=== PATIENT | female | born 1955 | race Caucasian/White ===

== ENCOUNTER 2024-11-26 06:23 | Day surgery (SDC) | payer OTHER ==
[2024-11-23 14:34] LABS: Absolute Eosinophils 0.1 K/uL (0-0.5); Absolute Lymphocytes (CBC) 1.9 K/uL (0.7-4.9); Absolute Monocytes 0.4 K/uL (0.1-1.3); Absolute Neutrophil 3.8 K/uL (1.8-8.0); Basophils % 0.4 % (0-1.3); Eosinophils % 1.4 % (0-4.4); Hematocrit 37.6 % (36.0-45.0); Hemoglobin 12.8 g/dL (12.0-15.0); Lymphocytes % 30.5 % (15.3-44.8); MCH 28.1 pg (27.0-35.0); MCHC 33.9 g/dL (32.0-36.0); MCV 82.8 fL (80-100); MPV 7.5 fL (7.6-11.3); Monocytes % 7.1 % (3.3-12.3); Neutrophils % 60.6 % (41.7-73.7); Platelets 308 thou/uL (152-406); RBC Red Blood Cell Count 4.55 M/uL (3.86-4.86); Red Cell Distribution Width 13.5 % (12.1-15.2)
[2024-11-23 14:52] LABS: Anion Gap 8.1 mEq/L (5.0-15.0); Potassium 4.1 mEq/L (3.5-5.1)
--- NOTE | 2024-11-25 12:36 | EKG ---
Test Date: 2024-11-23 Test Time: 14:08:33 [employer]r: BENNETT MEASUREMENT RESULTS: Intervals: Rate: 63 OR: 166 QRSD: 84 QT: 408 QTc: 417 [place]: P: 74 OR: 166 QRS: 69 T: 73 INTERPRETIVE STATEMENTS: Normal sinus rhythm Normal ECG Compared to ECG 03/23/2024 11:57:28 Sinus bradycardia no longer present Electronically Signed On 11-25-24 12:27:13 CDT by Jose Nielson
[2024-11-26] MEDS: Ringers Lactate 1,000 ML IV ONE ×2 (07:37→09:29)
[2024-11-26] MEDS ORDERED: ROCURONIUM 50 MG/5 ML VIAL IV ONE (08:07)
[2024-11-26] MEDS ORDERED: propofoL 200 MG/20 ML VIAL IV ONE (08:07)
[2024-11-26] MEDS ORDERED: FENTANYL CITR 100 MCG/2 ML ONE ×2 (08:07→10:02)
[2024-11-26] MEDS ORDERED: KETOROLAC 30 MG/ML INJ ONE (08:07)
[2024-11-26] MEDS ORDERED: ONDANSETRON 4 MG/2 ML VIAL ONE (08:07)
[2024-11-26] MEDS ORDERED: LIDOCAINE 2% MPF 5 ML VIAL ONE (08:07)
[2024-11-26] MEDS ORDERED: MIDAZOLAM HCL 2 MG/2 ML INJ ONE (08:07)
[2024-11-26] MEDS ORDERED: dexAMETHasone 10 MG/ML VIAL ONE (08:07)
[2024-11-26] MEDS ORDERED: NS 0.9% VIAL 20 ML ONE (08:28)
[2024-11-26] MEDS: CEFAZOLIN SODIUM 1 GM/VIAL ONE (08:30)
[2024-11-26] MEDS: LIDOCAINE HCL/EPINEPHRINE 20 ML MDV ONE (08:50)
[2024-11-26] MEDS: OXYMETAZOLINE HCL 0.05% 30ML NAS ONE ×2 (08:50→09:15)
[2024-11-26] MEDS: NA CHLORIDE 0.9% 1,000 ML ONE (09:00)
[2024-11-26] MEDS: NA CHLORIDE 0.9% 250 ML ONE (10:01)
[2024-11-26] MEDS: BACITRACIN OINTMENT 14 GM TUBE TOP ONE (10:25)
[2024-11-26] MEDS: MEPERIDINE HCL 25 MG/ML SYR ONE (11:21)
[2024-11-26] MEDS: ONDANSETRON 4 MG/2 ML VIAL ONE (12:25)
[2024-11-26 13:32] VITALS: BP 135/54; O2SAT 99
[2024-11-26 13:36] VITALS: TEMP 98.5
--- NOTE | 2024-12-02 10:19 | OP ---
Date of Procedure: 11/26/2024 Surgeon: PRATEEK PEREA Preoperative Diagnoses: 1. Bilateral chronic eustachian tube salpingitis and intrinsic obstruction of eustachian tube cartila ge. 2. Bilateral chronic maxillary sinusitis. 3. Bilateral chronic anterior ethmoid sinusitis. 4. Bilateral nasal septal deviation. 5. Bilateral hypertrophy of the inferior nasal turbinates. 6. Bilateral nasal valve collapse. Postoperative Diagnoses: 1. Bilateral chronic eustachian tube salpingitis and intrinsic obstruction of eustachian tube cartila ge. 2. Bilateral chronic maxillary sinusitis. 3. Bilateral chronic anterior ethmoid sinusitis. 4. Bilateral nasal septal deviation. 5. Bilateral hypertrophy of the inferior nasal turbinates. 6. Bilateral nasal valve collapse. 7. Obstructive left ara bullosa. Procedures: 1. Stereotactic computer-assisted navigational guidance. 2. Bilateral eustachian tube balloon dilation. 3. Bilateral maxillary balloon sinuplasty. 4. Bilateral maxillary sinus lavage via cannulation. 5. Excision of left ara bullosa. 6. Endoscopic septoplasty. 7. Bilateral submucosal Coblation of inferior turbinates. 8. Repair of bilateral nasal vestibular stenosis with Latera implants bilateral. Anesthesia: General endotracheal anesthesia was administered. I also infiltrated approximately 12 t o 15 mL of 1% lidocaine with 1:100,000 epinephrine. Estimated Blood Loss: Approximately 50 to 75 mL. Specimens: None. Findings: Bilateral nasal obstruction and flattened nasal dorsum from prior trauma resulting in bila teral nasal obstruction with bilateral nasal septal deviation, obstructive left ara bullosa. Sten otic, dynamic, and static nasal valve collapse. Hypertrophic inferior turbinates 3/4 and obstruction /stenosis, intrinsic obstruction of bilateral cartilaginous eustachian tubes. Mucoid secretions from bilateral maxillary and anterior ethmoid sinuses with mucosal disease noted in the anterior ethmoids. Complications: None. Disposition: Stable. The patient tolerated the procedure well. Indications For Procedure: The patient is a pleasant 69-year-old female with chronic longstanding bi lateral nasal obstruction and recurrent sinus infections involving bilateral maxillary and ethmoid si nuses and nasal obstruction from deviated nasal septum, nasal valve collapse, and hypertrophy of infe rior nasal turbinates. The patient also had stenotic intrinsic cartilaginous obstruction of bilatera l eustachian tubes. Her condition has been refractory to multiple rounds of antibiotics and medicati ons. These were indications to bring the patient to operative suite for the above-mentioned procedur e. She understood. All questions were answered. Risks versus benefits and complications were expla ined in detail. A consent form was signed, which was placed in the chart. Description Of Procedure: The patient was transferred from the preoperative holding area to the oper ative suite by Department of Anesthesia, placed on the operating table supine, sedated and intubated. Table was rotated 180 degrees and a head rest was placed. The patient's CT scan was calibrated to the stereotactic radio image guidance system and found to be working appropriately before surgery. A frin-soaked nasal pledgets were introduced into bilateral nasal cavities. I did infiltrate approxima tely 10 mL of 1% lidocaine with 1:100,000 epinephrine into the internal nasal valve area along the na eben sidewall bilaterally, bilateral inferior turbinate mucosa, and bilateral septal mucosa. The kelvin ent was then sterilely prepped and draped. Afrin-soaked nasal pledgets were removed and I introduced a 0-degree rigid nasal endoscope bilaterall y and photo documentation was obtained. I was able to access the right eustachian tube orifice with the scope and using the Acclarent eustachian tube balloon, I was able to insert the balloon into the lateral end of the right eustachian tube orifice without resistance and I inflated the balloon to 10 mmHg for approximately 2 minutes and then deflated the balloon and removed it. I then repeated this procedure on the left eustachian tube by inserting the scope posteriorly into the posterior choanae a nd then introducing the Acclarent balloon into the left eustachian tube orifice and inserted the ball oon and inflated it to approximately 10 mmHg for approximately 2 minutes and then deflated and remove d the balloon. I infiltrated approximately 1 to 2 mL of 1% lidocaine with 1:100,000 epinephrine at t he axilla of the left middle turbinate. Next, my attention was placed to the left maxillary sinus. A large obstructive left ara bullosa was removed with endoscopic scissors and Sharron forceps an d the edges were cauterized with suction Bovie on a setting of 20 for coagulation and 1 of cutting. I then used the image guidance to locate the left maxillary sinus ostial opening and I inserted the m axillary balloon into the left maxillary sinus after confirming with lighted guidewire and direct vis ualization as well as the image guidance. I then inflated the balloon to 12 mmHg twice and then defl ated the balloon and removed it. Final lavage of the left maxillary sinus with approximately 40 mL o f sterile saline and removed the residual mucus and fluid from the left maxillary sinus with olive-ti pped suction. Next, my attention was placed to the right maxillary sinus. The axilla of the right m iddle turbinate mucosa was infiltrated with approximately 1 to 2 mL of 1% lidocaine with 1:100,000 ep inephrine. I then medialized the right middle turbinate to expose the opening of the right maxillary sinus opening. The natural ostium was stenotic, but I was able to locate it by direct visualization as well as with image guidance and lighted guidewire. I was able to easily insert the balloon into the right maxillary sinus opening and I inflated the balloon to 12 mmHg twice and then deflated the b alloon and removed it. I then irrigated the right maxillary sinus with approximately 40 mL of steril e saline utilizing olive tip cannula. I then removed the residual contents including mucus and salin e with the olive tip suction. Next, my attention was placed to bilateral anterior ethmoid sinuses. I used a quad cut 4.0 blade to enter into the left anterior ethmoid sinus on the setting of 3000 rpm and performed a left anterior e thmoidectomy. I then inserted the quad cut microdebrider into the right anterior ethmoid sinus utilizing direct vis ualization and image guidance and the ethmoid bulla was entered utilizing the quad cut blade and an a nterior ethmoidectomy was performed. The microdebrider was removed. My attention was then placed to the septum. A modified [place] incision was made into the left nasal septal mucosa and then I elevated the mucosa off the obstructive cartilage and bone. I then made a crossover incision with a #15 blade scalpel a nd then elevated the mucosa off the right cartilage and bone and then utilizing the long nasal specul um, I isolated the cartilage and bone. In the middle of the speculum, I was able to elevate even pos teriorly and found that the patient had a large right septal spur that was most likely involving the vomer. I removed the obstructive cartilage and bone utilizing a #15 blade scalpel and Sharron for eps. I then elevated the obstructive deviated maxillary crest and removed with Sharron forceps. I then reapproximated the mucosa in a box like fashion utilizing 4-0 plain gut suture followed by muco eben reapproximation with 4-0 plain gut suture in a continuous running fashion. Next, my attention was placed to the left inferior turbinate, whereby the Coblation wand was utilized to enter the anterior face of the mucosa between the mucosa and bone, and a submucosal Coblation of the left inferior turbinate was performed on a setting of 7 for ablation and 3 of coagulation. Next, I entered the anterior face of the right inferior turbinate mucosa between the mucosa and bone utilizing the Coblation wand and performed right inferior turbinate Coblation on the setting of 7 for ablation and 3 for coagulation. Next, my attention was placed to the nasal valves. A surgical pen was used to cielo the junction of t he upper lateral cartilage and nasal bone/maxilla. On the right side of the patient, a line was draw n starting slightly medial to the medial canthus to the upper 1/3 of the alar rim. A line was marked at 6 mm cranial to the bone and cartilaginous junction along the line as most distal placement of th e implant. The nasal mucosa was incised immediately cranial to the alar rim and the cannula was adva nced through the incision along the line drawn. Using the cannula, a dissection plane was created ov er the upper lateral cartilage. At the junction with nasal aspect of the maxillary bone, the cannula was brought superficial to the bone. Using the 16-gauge cannula, a dissection plane was created abo ve the periosteum on the superficial aspect of the maxillary bone. The cannula tip was advanced to t he target marked 6 mm cranial to the bony cartilaginous junction using palpation on the surface of th e skin. Once the destination was obtained and the dissection was completed, the skin on the nose was normalized and the cannula was inspected to determine if its tip was at the sufficient depth. Once it was determined that the cannula tip was at the sufficient depth, the polymer implant was delivered and the cannula withdrawn. I utilized a 24-inch implant due to the length of the patient's nose. T here was no bleeding at the insertion site and wound closure was not needed. The same procedure was performed on the left side of the patient by marking with the surgical pen. On the left side of the patient, as described before, making sure that the line was drawn medial to the medial canthus to the upper 1/3 of the alar rim. The nasal mucosa was incised immediately cranial to the left alar rim an d the cannula was advanced through the incision along the line drawn. The cannula tip was advanced t o the target marked 6 mm cranial to the bony cartilaginous junction using palpation surface of the sk in and then once the destination was obtained and the dissection was completed, the skin on the nose was normalized and the cannula was inspected to determine if its tip was at the sufficient depth and then the polymer implant was delivered once the cannula tip was at its sufficient depth and the cannu la was withdrawn. There was no bleeding at the insertion site and wound closure was not necessary. Smith splints were cut to size and coated in antibiotic ointment and these were inserted bilaterally after placing PosiSep bilaterally against bilateral nasal septal mucosa. The splints were then sutur ed at the caudal septum with a 2-0 Prolene suture. A mustache dressing was placed. The patient pat rated the procedure well. She was discharged back to Department of Anesthesia in stable condition an d transferred back to the postoperative care unit and discharged home on antibiotic and analgesic med ication and she will follow up in 10 days or sooner if needed. ABHI/ZOILA Voice ID: [id number] Report ID: [id number]
== END 2024-11-26 13:15 | disposition home or self-care (01) ==
LOC: OR 06:23
PROVIDERS: ATTEND Otolaryngology Facial Plastic Surgery
PROC: 097G8ZZ Dilation of Left Eustachian Tube, Via Natural or Artificial Opening Endoscopic (ICD-10-PCS; 2024-11-26)
PROC: 097F8ZZ Dilation of Right Eustachian Tube, Via Natural or Artificial Opening Endoscopic (ICD-10-PCS; 2024-11-26)
PROC: 09UK8JZ Supplement Nasal Mucosa and Soft Tissue with Synthetic Substitute, Via Natural or Artificial Opening Endoscopic (ICD-10-PCS; 2024-11-26)
PROC: 09SM0ZZ Reposition Nasal Septum, Open Approach (ICD-10-PCS; 2024-11-26)
PROC: 09P Ear, Nose, Sinus, Removal (ICD-10-PCS; 2024-11-26)
PROC: 09QR4ZZ Repair Left Maxillary Sinus, Percutaneous Endoscopic Approach (ICD-10-PCS; principal; 2024-11-26 08:23)
PROC: 09QQ4ZZ Repair Right Maxillary Sinus, Percutaneous Endoscopic Approach (ICD-10-PCS; 2024-11-26 08:23)
PROC: 09BL8ZZ Excision of Nasal Turbinate, Via Natural or Artificial Opening Endoscopic (ICD-10-PCS; 2024-11-26 08:23)
DX: J32.2 Chronic ethmoidal sinusitis (principal); J32.0 Chronic maxillary sinusitis; J34.89 Other specified disorders of nose and nasal sinuses; J34.2 Deviated nasal septum; J34.3 Hypertrophy of nasal turbinates; J32.3 Chronic sphenoidal sinusitis; J34.829 Nasal valve collapse, unspecified; H68.023 Chronic Eustachian salpingitis, bilateral
CPT/HCPCS: 31254; 31295; 61782; 69706; 30468; 30520; 30802; 31240; 93005; 85025; 80048; 36415; 88305; 88311; A4216; J2704; J2003; J2250; J3010 ×2; J1100; J2175; J2405 ×2; J7120 ×2; J7050; J7040; J0690; C1889; 88304